=== PATIENT | male | born 1985 | race Hispanic/Latino ===

== ENCOUNTER 2024-07-20 16:00 | Emergency (ER) | payer SELFPAY | END 2024-07-20 17:10 | disposition home or self-care (01) | LOC: BURERS 16:00 | DX: S62.632A Displaced fracture of distal phalanx of right middle finger, initial encounter for closed fracture (principal); S62.634A Displaced fracture of distal phalanx of right ring finger, initial encounter for closed fracture; X58.XXXA Exposure to other specified factors, initial encounter; Y93.89 Activity, other specified; Y92.69 Other specified industrial and construction area as the place of occurrence of the external cause | CPT/HCPCS: 99283 ==